=== PATIENT | male | born 1965 | race Caucasian/White ===

== ENCOUNTER 2022-11-18 16:13 | Inpatient (IN) | payer MEDICAID ==
[~2022-11-18] VITALS: Ht 167.6 cm; Wt 78.9 kg
[2022-11-18 16:46] VITALS: BP 124/76
--- NOTE | 2022-11-18 16:56 | NUR ---
MD AT BEDSIDE TO EVALUATE THE PATIENT
[2022-11-18] MEDS ORDERED: NACL 0.9% 1,000 ML IV SCH ×2 (17:00→18:20)
[2022-11-18] MEDS ORDERED: KETOROLAC 30 MG/ML VIAL IVP ONE (17:00)
--- NOTE | 2022-11-18 17:11 | NUR ---
57 Y/O M BIB SELF C/O ABD PAIN SINCE YESTERDAY. PT WAS SEEN AT [facility] YESTERDAY RX BACTRIM FOR URINE INFECTION. PER PT THE PAIN IS STILL UNRESOLVE. JASPREETA
[2022-11-18 17:24] LABS: BASOPHILS % (AUTO) 0.2 % (0.0-2.0); EOSINOPHILS # (AUTO) 0.1 K/uL (0-0.4); EOSINOPHILS % (AUTO) 0.5 % (0.0-4.0); HEMATOCRIT 40.7 % (36-52); LYMPHOCYTES # (AUTO) 1.2 K/uL (2.0-11.5); LYMPHOCYTES % (AUTO) 9.2 % (20.5-51.1); MEAN CORPUSCULAR HEMOGLOBIN 32 pg (27-31); MEAN CORPUSCULAR HGB CONC 34 g/dL (33-37); MEAN CORPUSCULAR VOLUME 92.1 fL (80-94); MONOCYTES # (AUTO) 0.9 K/uL (0.8-1.0); MONOCYTES % (AUTO) 6.3 % (1.7-9.3); NEUTROPHILS # (AUTO) 11.3 K/uL (1.8-7.7); NEUTROPHILS % (AUTO) 83.8 % (42.2-75.2); PLATELET COUNT (AUTO) 174 K/uL (140-450); RED BLOOD CELL COUNT(AUTO) 4.42 MIL/uL (4.20-6.10); RED CELL DISTRIBUTION WIDTH 12.9 % (11.6-13.7); WHITE BLOOD COUNT (AUTO) 13.5 K/uL (4.8-10.8)
[2022-11-18] MEDS ORDERED: PIPERACILLIN/TAZOBACTAM 3.375 GM in DEXTROSE 5% 50 ML IV ONE (17:35)
[2022-11-18] MEDS ORDERED: PIPERACILLIN/TAZOBACTAM 3.375 GM VIAL IV ONE ×2 (17:45→19:47)
[2022-11-18 17:48] LABS: ALBUMIN 2.8 g/dL (3.4-5.0); ANION GAP 13.2 (8-16); CARBON DIOXIDE 26.8 mmol/L (21-32); CREATININE 1.3 mg/dL (0.6-1.3)
[2022-11-18] MEDS ORDERED: POTASSIUM CHLORIDE 10 MEQ TABER PO PRN (18:20)
[2022-11-18] MEDS ORDERED: ONDANSETRON 4 MG/2 ML VIAL IVP PRN ×2 (18:20→19:35)
[2022-11-18] MEDS ORDERED: ZOLPIDEM 10 MG TAB PO PRN (18:20)
[2022-11-18] MEDS ORDERED: MAG SULF 2000 MG/WATER PREMIX 50 ML IV PRN (18:20)
[2022-11-18] MEDS ORDERED: ACETAMINOPHEN 325 MG TAB PO PRN (18:20)
[2022-11-18] MEDS ORDERED: DOCUSATE SODIUM 100 MG GELCAP PO PRN (18:20)
[2022-11-18] MEDS ORDERED: LORazepam 2 MG/ML VIAL IVP PRN (18:20)
[2022-11-18] MEDS ORDERED: MORPHINE SULFATE 2 MG/ML SYR IVP PRN (18:20)
--- NOTE | 2022-11-18 18:30 | NUR ---
PT. SIGNED CONSENT AND THIS ALBANIAN SPEAKER EXPLAINED AND INTERPRETED PROCEDURE FOR Laparoscopic cholecystectomy WITH POSSIBLE CHANGE TO OPEN cholecystectomy
--- NOTE | 2022-11-18 18:32 | NUR ---
The patient's care was reviewed and supervised by PA RICHARDS RN.
--- NOTE | 2022-11-18 19:18 | NUR ---
GAVE REPORT TO HALIE CHEEMA.
[2022-11-18] MEDS ORDERED: fentaNYL citrate 0.05 MG/ML VIAL ONE (19:19)
[2022-11-18] MEDS ORDERED: PROPOFOL 200 MG/20 ML VIAL IV ONE (19:20)
[2022-11-18] MEDS ORDERED: SUCCINYLCHOLINE CHLORIDE 200 MG/10 ML VIAL IVP ONE (19:21)
--- NOTE | 2022-11-18 19:22 | NUR ---
QAMAR SOLIS FROM SURGERY FOLLOWING UP ON CONSENTS AND LAST MEAL PT ATE. WILL PICKIN UP PT FOR SURGERY
--- NOTE | 2022-11-18 19:28 | NUR ---
SURGERY HERE FOR PT
--- NOTE | 2022-11-18 19:28 | NUR ---
Patient will be admitted to care of DR RAYMUNDO. Admited to [facility]. Will go to room. Belongings list completed. Report to 106B.
--- NOTE | 2022-11-18 19:29 | NUR ---
Note sergo in EDM - 11/18/22 at 1955 by ANGIE Patient will be admitted to care of DR JO . Admited to [facility] Will go to [id number]. Belongings list completed. Report to QAMAR SOLIS.
[2022-11-18] MEDS ORDERED: diphenhydrAMINE 50 MG/ML VIAL IVP PRN (19:35)
[2022-11-18] MEDS ORDERED: MEPERIDINE 25 MG/ML SYR IVP PRN (19:35)
[2022-11-18] MEDS ORDERED: HYDROmorphone 1 MG/ML AMP IVP PRN (19:35)
[2022-11-18] MEDS ORDERED: BUPIVACAINE-MPF/EPI 0.25% 30 ML VIAL INJ ONE (19:47)
[2022-11-18] MEDS ORDERED: ROCURONIUM 50 MG/5 ML VIAL IV ONE (19:56)
[2022-11-18] MEDS ORDERED: ONDANSETRON 4 MG/2 ML VIAL ONE (20:08)
[2022-11-18] MEDS ORDERED: DEXAMETHASONE 4 MG/ML VIAL ONE (20:09)
[2022-11-18] MEDS ORDERED: SUGAMMADEX SODIUM 200 MG/2 ML VIAL IV ONE (20:44)
[2022-11-18] MEDS ORDERED: MEPERIDINE 25 MG/ML SYR ONE (20:47)
[2022-11-18 21:01] LABS: APPEARANCE,URINE CLEAR (CLEAR); BILIRUBIN,URINE 1+ (NEGATIVE); BLOOD, URINE NEGATIVE (NEGATIVE); COLOR,URINE YELLOW (YELLOW); LEUKOCYTE ESTERASE ,URINE NEGATIVE (NEGATIVE); NITRITE, URINE NEGATIVE (NEGATIVE); UGLUCOSE NEGATIVE (NEGATIVE)
--- NOTE | 2022-11-18 21:29 | NUR ---
RECEIVED PATIENT VIA GURNEY FROM OR. PATIENT WAS ALERT AND ORIENT X 4. ARMENIAN SPEAKER . PATIENT IS POST SURGERY FOR LAPORSCOPIC APPENDECTOMY. PATIENT HAS A NAILA DRAIN TO THE LEFT SIDE OF ABDOMIN WITH DARK RED DRAINAGE. PATIENT DENIES ANY PAIN/DISCOMFORT AT THIS TIME. COLLECTED MEDICAL HISTORY WITH THE ASSISTANCE OF THE FAMILY A BEDSIDE. PATIENT'S FAMILY WERE MADE AWARE OF VISITING HOURS AND ARE GIVEN A FEW MINUTES TO VISIT BEFORE ASKED TO LEAVE. NURSING LOOKED OVER PATIENT BODY AND NO NOTED OPEN SOARS AT THIS TIME. PATIENT WAS GIVEN ROOM ORIENTATION AND REQUIRED TO USE CALL LIGHT FOR ALL NEEDS. NPO FOR NOW UNTIL MD CHANGED THE DIET STATUS. [email or web address]
[2022-11-18] MEDS: LACTATED RINGERS 1,000 ML IV SCH (22:43)
[2022-11-19] MEDS ORDERED: PIPERACILLIN/TAZOBACTAM 3.375 GM VIAL IV ONE (01:01)
[2022-11-19] MEDS: PIPERACILLIN/TAZOBACTAM 3.375 GM in DEXTROSE 5% 50 ML IV SCH ×3 (01:06→18:00)
--- NOTE | 2022-11-19 01:18 | NUR ---
DRAINED PATIENTS NAILA DRAIN D/T DRAIN WAS NO LONGER COLLAPSED. 80MLS. PATIENT DOES NOT COMPLAIN OF PAIN. NO NOTED RESPIRATORY DISTRESS. SIDE RAILS UP X2 CALL LIGHT WITHIN REACH. [email or web address]
--- NOTE | 2022-11-19 03:03 | NUR ---
DURING ROUNDS NURSING NOTED PATIENT ASLEEP. NO NOTED S/S OF PAIN/DISCOFORT. NO NOTED S/S OR RESPIRATORY DISTRESS. CHEST RISING AND FALLING EVENLY. SIDE RAILS UP X 2 CALL LIGHT WITHIN REACH. [email or web address]
[2022-11-19] MEDS: LACTATED RINGERS 1,000 ML IV SCH ×2 (03:55→12:30)
[2022-11-19 04:00] VITALS: BP 108/59
[2022-11-19 06:51] LABS: HEMATOCRIT 35.6 % (36-52); HEMOGLOBIN 12.1 g/dL (12.0-18.0); LYMPHOCYTES # (AUTO) 0.5 K/uL (2.0-11.5); LYMPHOCYTES % (AUTO) 4.3 % (20.5-51.1); MEAN CORPUSCULAR HEMOGLOBIN 32 pg (27-31); MEAN CORPUSCULAR HGB CONC 34 g/dL (33-37); MEAN CORPUSCULAR VOLUME 92.6 fL (80-94); MONOCYTES # (AUTO) 0.4 K/uL (0.8-1.0); MONOCYTES % (AUTO) 3.6 % (1.7-9.3); NEUTROPHILS # (AUTO) 10.5 K/uL (1.8-7.7); NEUTROPHILS % (AUTO) 92.1 % (42.2-75.2); PLATELET COUNT (AUTO) 179 K/uL (140-450); RED BLOOD CELL COUNT(AUTO) 3.84 MIL/uL (4.20-6.10); RED CELL DISTRIBUTION WIDTH 12.7 % (11.6-13.7); WHITE BLOOD COUNT (AUTO) 11.4 K/uL (4.8-10.8)
[2022-11-19 06:55] LABS: ANION GAP 13.2 (8-16); CREATININE 1.2 mg/dL (0.6-1.3); POTASSIUM 4.2 mmol/L (3.5-5.1)
--- NOTE | 2022-11-19 07:20 | NUR ---
ENDORSED TO AM SHIFT NURSE FOR CONTINUITY OF CARE. [email or web address]
--- NOTE | 2022-11-19 07:21 | NUR ---
RECEIVED REPORT FROM HEAD STOCK OPERATOR NURSE FOR CONTINUITY OF CARE. PT IS AWAKE, AOX4. RESPIRATIONS EVEN AND UNLABORED ON RA. IV ON R AC20G RUNNING LR @100. NO DISTRESS NOTED. CALL LIGHT WITHIN REACH. ALL SAFETY PRECAUTIONS IN PLACE.
[2022-11-19 08:00] VITALS: BP 114/68
--- NOTE | 2022-11-19 08:34 | NUR ---
CALLED RT, INFORMED THEM DR DICKEY ORDER INCENTIVE SPIROMETER.
--- NOTE | 2022-11-19 13:40 | NUR ---
PATIENT AMBULATING IN [place], GAIT STEADY. DENIES PAIN.
--- NOTE | 2022-11-19 15:13 | NUR ---
PATIENT HAS BEEN SCREENED AND CATEGORIZED MODERATE NUTRITION RISK. PATIENT WILL BE SEEN WITHIN 3-5 DAYS OF ADMISSION. REVIEWED BY STARLA UPTON RD
[2022-11-19 16:00] VITALS: BP 124/74
--- NOTE | 2022-11-19 19:19 | NUR ---
ENDORSED CARE TO CASE FINISHING MACHINE ADJUSTER NURSE DAGO. JENNIFER HINSON.
--- NOTE | 2022-11-19 19:20 | NUR ---
RECEIVED PT IN BED, AWAKE,ALERT AND ORIENTED X 4. DENIES PAIN. DENIES SHORTNESS OF BREATH. SKIN WARM AND DRY TO TOUCH. ABDOMINAL INCISION CLEAN AND OPEN TO AIR, NAILA X 1. SAFETY PRECAUTIONS IN PLACE, CALL LIGHT IN REACH.
[2022-11-19 20:00] VITALS: BP 124/67
[2022-11-20] MEDS: PIPERACILLIN/TAZOBACTAM 3.375 GM in DEXTROSE 5% 50 ML IV SCH ×3 (01:09→18:00)
--- NOTE | 2022-11-20 01:49 | NUR ---
PATIENT IS ASLEEP. NO S/SX OF PAIN NOR DISCOMFORT. CALL LIGHT IN REACH.
[2022-11-20 04:00] VITALS: BP 135/68
--- NOTE | 2022-11-20 06:43 | NUR ---
PATIENT IS ASLEEP. ALL NEEDS ATTENDED TO. NO DISTRESS NOTED. SAFETY PRECAUTIONS IN PLACE DURING THE SHIFT, CALL LIGHT REMAINS WITHIN REACH.
[2022-11-20 07:31] LABS: BASOPHILS % (AUTO) 0.2 % (0.0-2.0); EOSINOPHILS # (AUTO) 0.1 K/uL (0-0.4); EOSINOPHILS % (AUTO) 0.7 % (0.0-4.0); HEMATOCRIT 37.3 % (36-52); HEMOGLOBIN 12.7 g/dL (12.0-18.0); LYMPHOCYTES # (AUTO) 1.2 K/uL (2.0-11.5); MEAN CORPUSCULAR HEMOGLOBIN 32 pg (27-31); MEAN CORPUSCULAR HGB CONC 34 g/dL (33-37); MEAN CORPUSCULAR VOLUME 92.8 fL (80-94); MONOCYTES # (AUTO) 0.6 K/uL (0.8-1.0); NEUTROPHILS # (AUTO) 6.1 K/uL (1.8-7.7); NEUTROPHILS % (AUTO) 77.1 % (42.2-75.2); PLATELET COUNT (AUTO) 244 K/uL (140-450); RED BLOOD CELL COUNT(AUTO) 4.02 MIL/uL (4.20-6.10); RED CELL DISTRIBUTION WIDTH 13.1 % (11.6-13.7); WHITE BLOOD COUNT (AUTO) 7.9 K/uL (4.8-10.8)
--- NOTE | 2022-11-20 07:41 | NUR ---
RECEIVED PATIENT FROM PM NURSE FOR CONTINUATION OF CARE. PATIENT SEEN ON BED ASLEEP WITH NORMAL RISE AND FALL OF CHEST. PATIENT CARE PLAN REVIEWED AND PATIENT CARE RESUMED.
[2022-11-20 07:45] LABS: ANION GAP 12.7 (8-16); CARBON DIOXIDE 24.3 mmol/L (21-32); CREATININE 0.8 mg/dL (0.6-1.3)
[2022-11-20 16:00] VITALS: BP 147/78
--- NOTE | 2022-11-20 19:25 | NUR ---
ENDORSED PATIENT TO PM NURSE FOR CONTINUATION OF CARE.
--- NOTE | 2022-11-20 19:30 | NUR ---
RECEIVED PATIENT IN BED AWAKE, ALERT AND ORIENTED X 4. FAMILY MEMBER AT THE BEDSIDE. DENIES PAIN AT THIS TIME. NO ACUTE RESPIRATORY DISTRESS NOTED. ABDOMINAL INCISION CLEAN AND OPEN TO AIR, NAILA X 1 INTACT. SKIN WARM AND DRY TO TOUCH. BED IN THE LOWEST AND LOCKED POSITION FOR SAFETY. CALL LIGHT WITHIN REACH, ENCOURAGED TO CALL IF ASSISTANCE IS NEEDED, PT VERBALLY ACKNOWLEDGED.
[2022-11-20 20:00] VITALS: BP 150/91
[2022-11-21] MEDS: PIPERACILLIN/TAZOBACTAM 3.375 GM in DEXTROSE 5% 50 ML IV SCH ×2 (01:10→10:00)
[2022-11-21 04:00] VITALS: BP 145/85
[2022-11-21 06:30] LABS: BASOPHILS % (AUTO) 0.4 % (0.0-2.0); EOSINOPHILS # (AUTO) 0.3 K/uL (0-0.4); EOSINOPHILS % (AUTO) 4.5 % (0.0-4.0); HEMATOCRIT 39.3 % (36-52); HEMOGLOBIN 13.4 g/dL (12.0-18.0); LYMPHOCYTES # (AUTO) 1.4 K/uL (2.0-11.5); LYMPHOCYTES % (AUTO) 19.4 % (20.5-51.1); MEAN CORPUSCULAR HEMOGLOBIN 32 pg (27-31); MEAN CORPUSCULAR HGB CONC 34 g/dL (33-37); MEAN CORPUSCULAR VOLUME 92.9 fL (80-94); MONOCYTES # (AUTO) 0.7 K/uL (0.8-1.0); MONOCYTES % (AUTO) 10.1 % (1.7-9.3); NEUTROPHILS # (AUTO) 4.7 K/uL (1.8-7.7); NEUTROPHILS % (AUTO) 65.6 % (42.2-75.2); PLATELET COUNT (AUTO) 310 K/uL (140-450); RED BLOOD CELL COUNT(AUTO) 4.23 MIL/uL (4.20-6.10); RED CELL DISTRIBUTION WIDTH 12.6 % (11.6-13.7); WHITE BLOOD COUNT (AUTO) 7.1 K/uL (4.8-10.8)
--- NOTE | 2022-11-21 06:34 | NUR ---
PATIENT IS ASLEEP. ALL NEEDS ATTENDED O. NO DISTRESS NOTED. SAFETY PRECAUTIONS MAINTAINED DURING THE SHIFT, CALL LIGHT REMAINS WITHIN REACH.
[2022-11-21 06:51] LABS: ANION GAP 12.5 (8-16); CARBON DIOXIDE 22.6 mmol/L (21-32); CREATININE 0.8 mg/dL (0.6-1.3); POTASSIUM 4.1 mmol/L (3.5-5.1)
--- NOTE | 2022-11-21 07:24 | NUR ---
RECEIVED PATIENT FROM PM NURSE FOR CONTINUATION OF CARE. PATIENT SEEN ASLEEP IN BED WITH NORMAL RISE AND FALL OF CHEST.
[2022-11-21] MEDS ORDERED: IBUP200C97 PO (10:14)
[2022-11-21] MEDS ORDERED: AMOX-999 PO (11:38)
[2022-11-21 12:19] VITALS: BP 145/85
== END 2022-11-21 13:15 | disposition home or self-care (01) | DRG 710 ==
LOC: MED 16:13 → MMU 18:19 → MTU 21:30
PROVIDERS: ADMIT Family Medicine; ATTEND Family Medicine
PROC: 0DNU4ZZ Release Omentum, Percutaneous Endoscopic Approach (ICD-10-PCS; 2022-11-18)
PROC: 0DTJ4ZZ Resection of Appendix, Percutaneous Endoscopic Approach (ICD-10-PCS; principal; 2022-11-18 19:30)
DX: A41.9 Sepsis, unspecified organism (principal); K35.32 Acute appendicitis with perforation, localized peritonitis, and gangrene, without abscess; E44.0 Moderate protein-calorie malnutrition; E87.1 Hypo-osmolality and hyponatremia; E66.9 Obesity, unspecified; K38.1 Appendicular concretions; K66.0 Peritoneal adhesions (postprocedural) (postinfection); Z20.822 Contact with and (suspected) exposure to COVID-19; D72.829 Elevated white blood cell count, unspecified; M43.16 Spondylolisthesis, lumbar region; N40.0 Benign prostatic hyperplasia without lower urinary tract symptoms; Z68.28 Body mass index [BMI] 28.0-28.9, adult
CPT/HCPCS: 36415; 80048; 80053; 81003; 82374; 83690; 83735; 85025; 87081; 93005; 96361; 96374; 96375; 99285; J0330; J1100; J1885; J2175; J2270; J2405; J2543; J2704; J3010; J3490; J7030; J7060; J7120

== ENCOUNTER 2022-12-21 16:45 | Emergency (ER) | payer MEDICAID ==
[~2022-12-21] VITALS: Ht 167.6 cm; Wt 72.6 kg
[~2022-12-21 16:45] MED LIST: AMOX-999 PO; IBUP200C97 PO
[2022-12-21 16:52] VITALS: BP 163/103
[2022-12-21] MEDS ORDERED: HYDROcodone/APAP 5/325 MG 1 TAB TAB PO ONE (20:15)
[2022-12-21] MEDS ORDERED: LIDOCAINE 1% 500 MG/ 50 ML VIAL INJ ONE (20:15)
--- NOTE | 2022-12-21 20:15 | NUR ---
PT AMBULATED TO BED #9
--- NOTE | 2022-12-21 20:19 | NUR ---
daughter at bedside
[2022-12-21] MEDS ORDERED: LIDOCAINE MPF 1% 5 ML ONE (20:26)
--- NOTE | 2022-12-21 21:00 | NUR ---
at the bedside, perfoming the drainage
[2022-12-21] MEDS ORDERED: IBUP-2218 PO (21:41)
[2022-12-21] MEDS ORDERED: PRED20TA5 PO (21:41)
[2022-12-21 21:45] VITALS: BP 150/98
[2022-12-21] MEDS ORDERED: predniSONE 20 MG TAB PO ONE (21:45)
--- NOTE | 2022-12-21 22:26 | NUR ---
Patient discharged with v/s stable. Written and verbal after care instructions given and explained. Patient alert, oriented and verbalized understanding of instructions. Ambulatory with steady gait. All questions addressed prior to discharge. ID band removed. Patient advised to follow up with PMD. Rx of prednisone given. Patient educated on indication of medication including possible reaction and side effects. Opportunity to ask questions provided and answered. pt left with his belongings and accompany by his daughter.
== END 2022-12-21 22:26 | disposition home or self-care (01) ==
LOC: MED 16:45
DX: M79.675 Pain in left toe(s) (principal); Z79.899 Other long term (current) drug therapy; Z90.49 Acquired absence of other specified parts of digestive tract
CPT/HCPCS: 20600; 36415; 73660; 99283; J2001; J7512; 99284